=== PATIENT | female | born 1975 | race Hispanic/Latino ===

== ENCOUNTER 2018-12-21 07:37 | Day surgery (SDC) | payer OTHER ==
[2018-12-20 16:14] VITALS: BMI 25.7
[2018-12-21] MEDS ORDERED: Lactated Ringer's 1,000 ML IV ONE ×2 (08:40→13:17)
[2018-12-21] MEDS ORDERED: Midazolam 2 MG/2 ML VIAL ONE ×7 (10:37→12:45)
[2018-12-21] MEDS ORDERED: Propofol 10 mg/ml Inj (20 ML) ONE ×2 (10:37→13:01)
[2018-12-21] MEDS ORDERED: Bupivacaine HCl 0.5% PF (30 ml) Inj IJ ONE (11:04)
[2018-12-21] MEDS ORDERED: Lidocaine 2% Inj (20ml) IJ ONE (11:04)
[2018-12-21] MEDS ORDERED: Lactated Ringer's 1,000 ML IV SCH (13:45)
[2018-12-21] MEDS ORDERED: HYDROmorphone 0.5 mg/0.5 ml ISec IVP PRN (13:45)
[2018-12-21 15:17] VITALS: RESP 18
[2018-12-21 16:10] VITALS: BP 118/78; PULSE 76; TEMP 98; O2SAT 99
--- NOTE | 2018-12-22 08:25 | OP ---
PROCEDURE DATE: 12/21/18 PREOPERATIVE DIAGNOSES: Overactive bladder, urge incontinence, pelvic pain. POSTOPERATIVE DIAGNOSES: Overactive bladder, urge incontinence, pelvic pain. PROCEDURE: Stage 1 InterStim implant x2 leads. SURGEON: Oscar Rivas M.D. ESTIMATED BLOOD LOSS: Minimal. TYPE OF ANESTHESIA: Local with sedation. This is a clean case. DESCRIPTION OF PROCEDURE: The patient was brought to the operating room and placed in supine position. Sedation was administered. We then prepped and draped the patient in usual sterile fashion including pre-cleansed with chlorhexidine solution and then alcohol-based prep. Fluoroscope was used to erickson the bony landmarks and S3 lead on the left side was placed rather easily using the guide needle. On the right side, however, I was unable to access the S3 foramen despite multiple attempts and nearly two hours of trying to land in the S3 foramina. 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 Once I exhausted the right side, I placed a second lead on the S2 foramina on the left side as we were able to get good response from both leads during test. I then marked the S3 lead with silk and marked the S2 lead with Prolene. The leads were tunneled. A pocket was made for generator by incising the skin. This pocket will be used to ultimately place the permanent device if she passes her trial over the next week. Once this was complete, the external device was connected, the pocket was closed, the patient was awakened from her sedation and transferred to the recovery room in good and stable condition. The patient will follow up exactly one week from today for either device implantation or removal of the leads. Oscar Rivas M.D. MTDD
--- NOTE | 2018-12-22 16:20 | RAD ---
Date of service: 12/21/2018 PROCEDURE: Intraoperative fluoroscopy HISTORY: INSERTION OF INTERSTIM COMPARISON: Not available TECHNIQUE: Intraoperative fluoroscopy was provided for InterStim insertion. Total time of fluoroscopy was 419.3 sec. Cumulative dose was 255.05 mGy FINDINGS: Multiple fluoroscopic spot films are submitted. IMPRESSION: Fluoroscopy provided.
== END 2018-12-21 16:10 | disposition home or self-care (01) ==
LOC: H.OPSURG 07:37
PROVIDERS: ATTEND Urology
DX: N39.41 Urge incontinence (principal); E78.5 Hyperlipidemia, unspecified; F17.210 Nicotine dependence, cigarettes, uncomplicated; F32.9 Major depressive disorder, single episode, unspecified; N32.81 Overactive bladder
CPT/HCPCS: 64581; C1778; J0690; J2001; J2250; J2704; J3010; J7120

== ENCOUNTER 2018-12-28 07:42 | Day surgery (SDC) | payer OTHER ==
[2018-12-20 16:14] VITALS: BMI 25.7
[2018-12-28] MEDS ORDERED: Lactated Ringer's 1,000 ML IV ONE (08:30)
[2018-12-28 08:34] VITALS: RESP 18
[2018-12-28] MEDS ORDERED: Rocuronium 10 mg/ml (5 ml) ONE (08:36)
[2018-12-28] MEDS ORDERED: Succinylcholine 200 mg/10 ml Inj IV ONE (08:36)
[2018-12-28] MEDS ORDERED: ePHEDrine 50 mg/ml Inj ONE (08:36)
[2018-12-28] MEDS ORDERED: Lidocaine 4% (Laryng-O-Jet) Kit MM ONE (08:36)
[2018-12-28] MEDS ORDERED: Albuterol HFA 90 mcg/actuation (8 g) ONE (09:04)
[2018-12-28] MEDS ORDERED: Propofol 10 mg/ml Inj (20 ML) ONE ×2 (09:04→09:40)
[2018-12-28] MEDS ORDERED: Midazolam 2 MG/2 ML VIAL ONE (09:04)
[2018-12-28] MEDS ORDERED: Lidocaine 2% MPF (5 ml) Inj ONE (09:05)
[2018-12-28] MEDS ORDERED: Bupivacaine 0.5% Inj(30mL) IJ ONE ×2 (09:55)
[2018-12-28] MEDS ORDERED: Dexamethasone 4 mg/1 ml ONE (10:00)
[2018-12-28] MEDS ORDERED: Desflurane Inhalation Anesthetic Liq (240 ml) ONE (10:00)
[2018-12-28] MEDS ORDERED: HEMOSTATIC MATRIX 10 ML DIS.NEEDLE TOP ONE (10:20)
[2018-12-28] MEDS ORDERED: HYDROmorphone 0.5 mg/0.5 ml ISec IVP PRN (10:49)
[2018-12-28] MEDS ORDERED: Lactated Ringer's 1,000 ML IV SCH (11:00)
[2018-12-28 13:33] VITALS: BP 107/71; PULSE 95; TEMP 98.4
[2018-12-28 13:34] VITALS: O2SAT 97
--- NOTE | 2018-12-28 22:15 | OP ---
PROCEDURE DATE: 12/28/2018 INDICATIONS: Ms. Cat is status post stage I InterStim exactly 1 week ago. She over the last week had a significant reduction in her pain for the first two days of the trial; however, her pain worsened after the second day and never dissipated and therefore she is not interested in proceeding to a full implant of the device unfortunately. PREOPERATIVE DIAGNOSES: Failed stage I stimulator test, complex wound right gluteus. POSTOPERATIVE DIAGNOSES: Failed stage I stimulator test, complex wound right gluteus. PROCEDURE: Removal of InterStim leads (S2, S3) washout, complex closure of wound. OPERATIVE DETAILS: The patient was brought to the operating room, placed in the supine position. General anesthesia was administered. We then placed the patient in prone position. All pressure points were padded. We prepped and draped the patient in the usual sterile fashion including a pre-scrub of chlorhexidine wash as well as an alcohol based prep. We called the time-out verifying the patient's name, procedure, antibiotics, and allergies. We proceeded to anesthetize the areas of interest with a combination of 2% lidocaine and 0.5% Marcaine. An incision was then made over the pre-made pocket to expose the leads. The leads were from the extension pieces and the extension pieces were removed from the patient. The booties were removed from the leads, and at this point, we turned our attention to removing the tined leads from the sacrum. We made two small vertical stab wound incisions over the entry point from the sacrum at the S2 and S3 level. The tined leads were both grasped using a curved hemostat and was slowly and gently and delicately removed from the patient. The lead in its entirety was removed without any issues. At this point, we turned to washing out the wound and we did so with copious amounts of sterile water both from the sacrum and on the pocket in the gluteus. Once this was complete, we closed the sacral wounds using 4-0 Monocryl and then turned our attention to the wound in the gluteus, which was closed in multi-layer complex closure with local tissue advancement flap to gain complete closure with an excellent cosmetic appearance. A 4-0 Monocryl was used to ultimately close the skin. Dermabond and Steri-Strips were applied to the wounds. The patient was awakened from anesthesia and transferred to the recovery room in good, stable condition. The patient will follow up in the office. Oscar Rivas M.D. [facility]DS[facility]
== END 2018-12-28 13:44 | disposition home or self-care (01) ==
LOC: H.OPSURG 07:42
PROVIDERS: ATTEND Urology
DX: N39.41 Urge incontinence (principal); F32.9 Major depressive disorder, single episode, unspecified; F41.9 Anxiety disorder, unspecified
CPT/HCPCS: 64561; 88304; C2615; J0330; J0690; J1100; J2001; J2250; J2405; J2704; J3010; J7120